=== PATIENT | male | born 1935 | race Caucasian/White ===

== ENCOUNTER → 2016-10-25 | Day surgery (SDC) | payer MEDICARE ==
[~2016-10-25] MED LIST: FERR210T PO; FLUT12AE10 IH; FRSM80T PO; LORA0.5T PO; METO-386 PO; ZIT250 PO
== END | disposition home or self-care (01) ==
LOC: SOUO 01:01
PROVIDERS: ATTEND Internal Medicine Gastroenterology
DX: K74.60 Unspecified cirrhosis of liver (principal)